=== PATIENT | female | born 1980 | race Caucasian/White ===

== ENCOUNTER 2017-01-29 20:53 | Emergency (ER) | payer OTHER ==
[2017-01-29 21:04] VITALS: BMI 27.4
[2017-01-29 21:06] VITALS: O2SAT 100
--- NOTE | 2017-01-29 21:46 | ED PDOC ---
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 Per pt, pain started 1 month ago and it is intermittent. Pain is described as sharp, rated as a 8/10, and episodic. These episodes usually lasts about 10 minutes and then resolves on its own. Pain is located above the left breast with radiation to the L arm. Pain is not associated with any activity, exercise or motion. Pt states that she gets the pain at random times. Initially when the pain first started, pt would eat something sweet and the pain would go away but now nothing helps with the pain. No similar episodes in the past. Denies palpitations, dyspnea, n/v/d/c, abdominal pain, cough, fever. of note, spouse present by bedside. 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 Past Medical History Reviewed: Historical Data, Nursing Documentation, Vital Signs Vital Signs: Last Vital Signs Temp 98.3 F 01/29/17 21:04 Pulse 61 01/29/17 22:05 Resp 16 01/29/17 21:04 BP 137/79 01/29/17 21:04 Pulse Ox 100 01/29/17 22:13 - Surgical History Surgical History: No Surg Hx - Family History Family History: States: No Known Family Hx - Living Arrangements Living Arrangements: With Family - Social History Current smoker - smoking cessation education provided: No Alcohol: Occasional Drugs: Denies - Home Medications Home Medications: Ambulatory Orders Medication Instructions Recorded Amoxicillin/Clavulanate [Augmentin 1 tab PO BID #14 tab 10/02/15 875 MG-125 MG] - Allergies Allergies/Adverse Reactions: Allergies Allergy/AdvReac Type Severity Reaction Status Date / Time No Known Allergies Allergy Verified 01/29/17 21:04 KATIE Risk Score for UA/NSTEMI - KATIE Risk Score Age > 64: NO 3 or more CAD Risk Factors: NO Known CAD (Stenosis greater than 50%): NO Aspirin use in past 7 days: NO Severe Angina: NO EKG ST changes greater than 0.5mm: NO Positive Cardiac Marker: NO KATIE Score: 0 Risk %: 5% Curb-65 Severity Score - CURB-65 Severity Score Confusion: No Bun >19mg/dl (>7mmol/L): No Respiratory Rate greater than/equal to 30: No Systolic BP <90 or Diastolic BP less than/equal 60mmHg: No Age >64: No Curb-65 Score: 0 Percentage 30-day mortality: 0.6% Wells Criteria for PE - Wells Criteria for Pulmonary Embolism Clinical Signs and Symptoms of DVT: No P.E is #1 Diagnosis, or Equally Likely: No Heart Rate >100: No Immobilization at least 3 days;Surgery previous 4 weeks: No Previous, objectively diagnosed PE or DVT: No Hemoptysis: No Malignancy w/treatment within 6 months, or palliative: No Total Score: 0 Review of Systems ROS Statement: Except As Marked, All Systems Reviewed And Found Negative Constitutional: Negative for: Fever, Chills Cardiovascular: Positive for: Chest Pain (Left sided ). Negative for: Palpitations, Edema Respiratory: Negative for: Cough, Shortness of Breath Gastrointestinal: Negative for: Nausea, Vomiting, Abdominal Pain Genitourinary Female: Negative for: Dysuria, Frequency Musculoskeletal: Positive for: Shoulder Pain (L side ). Negative for: Neck Pain Neurological: Negative for: Weakness, Numbness Psych: Positive for: Anxiety Physical Exam - Reviewed Nursing Documentation Reviewed: Yes Vital Signs Reviewed: Yes - Physical Exam Appears: Positive for: Well, Non-toxic, Uncomfortable (Looks tearful and anxious ) Head Exam: Positive for: ATRAUMATIC, NORMAL INSPECTION, NORMOCEPHALIC Skin: Positive for: Normal Color, Warm, DRY Eye Exam: Positive for: EOMI, Normal appearance, PERRL ENT: Positive for: Normal ENT Inspection Neck: Positive for: Normal, Painless ROM Cardiovascular/Chest: Positive for: Regular Rate, Rhythm, Other (tenderness to palpation L chest above the breast ). Negative for: Murmur Respiratory: Positive for: CNT, Normal Breath Sounds Gastrointestinal/Abdominal: Positive for: Normal Exam, Bowel Sounds, Soft. Negative for: Tenderness, Mass, Distended Back: Positive for: Normal Inspection. Negative for: L CVA Tenderness, R CVA Tenderness Extremity: Positive for: Normal ROM Neurologic/Psych: Positive for: Alert, Oriented - Laboratory Results Result Diagrams: 01/29/17 22:00 01/29/17 22:01 - ECG ECG: Positive for: Interpreted By Me ECG Rhythm: Positive for: Normal QRS, Normal ST Segment Interpretation Of ECG: Normal sinus with rate of [address] changes appreciated. O2 Sat by Pulse Oximetry: 100 - Progress ED Course And Treament: 36 YO Female with no Sig PMH presents to [facility] ED for chest pain. KATIE score is 0, chest pain unlikely to be cardiac in origin. --EKG appreciated, normal sinus with 78 bpm, no st changes appreciated -trops -cbc, cmp wnl -urine dip -chest xray -urine preg neg -Pt signed out to Dr. Ham. Disposition - Clinical Impression Clinical Impression: Chest pain - Disposition Disposition: Transfer of Care (Dr. Ham) Disposition Time: 22:19 Condition: STABLE Forms: [employer] (Maori)
[2017-01-29 22:06] LABS: BASO % 0.3 % (0.0-2.0); EOS # 0.1 K/uL (0.0-0.7); EOS % 1.7 % (0.0-4.0); LYMPH # 2.9 K/uL (1.0-4.3); LYMPH % 37.2 % (20.0-40.0); MEAN CELL VOLUME 91.5 fl (81.0-99.0); MEAN CORPUSCULAR HEMOGLOBIN 30.2 pg (27.0-31.0); MEAN PLATELET VOLUME 9.2 fl (7.2-11.7); MONO # 0.7 K/uL (0.0-0.8); MONO % 8.6 % (0.0-10.0); NEUT % 52.2 % (50.0-75.0); NRBC % 0.1 % (0.0-0.0); RED CELL DISTRIBUTION WIDTH 13.5 % (11.5-14.5); WHITE BLOOD COUNT 7.7 K/uL (4.8-10.8)
[2017-01-29 22:15] LABS: BLOOD UREA NITROGEN 10 mg/dl (7-17); CALCIUM 8.6 mg/dL (8.4-10.2); CARBON DIOXIDE 23 mmol/L (22-30); CHLORIDE 107 mmol/L (98-107); GFR AFRICAN-AMERICAN > 60; GLUCOSE,RANDOM 92 mg/dL (65-105); POTASSIUM 3.7 MMOL/L (3.6-5.0); SODIUM 142 mmol/l (132-148)
[2017-01-29 22:49] VITALS: BP 122/81; PULSE 62; RESP 18; TEMP 98
--- NOTE | 2017-01-29 23:01 | ED PDOC ---
- Laboratory Results Result Diagrams: 01/29/17 22:00 01/29/17 22:01 - ECG O2 Sat by Pulse Oximetry: 100 Medical Decision Making Medical Decision Making: Patient signed out to provider by Dr Wong pending labs Labs reviewed show no clinically significant abnormalities Patient reports improvement in symptoms. she is stable for discharge home Dx Atypical Chest Pain Patient referred to follow up in [facility] and advised to take Ibuprofen as needed Disposition - Clinical Impression Clinical Impression: Chest pain - POA Present On Arrival: None - Disposition Referrals: [facility] [Outside] Disposition: Routine/Home Disposition Time: 22:30 Condition: STABLE Instructions: Noncardiac Chest Pain (ED) Forms: [facility] (Khmer)
--- NOTE | 2017-01-30 06:33 | CARD ---
APPROVED REPORT EKG Measurement Heart [id number] <Conclusion> Normal sinus rhythm Normal ECG
--- NOTE | 2017-01-30 10:41 | RAD ---
HISTORY: chest pain COMPARISON: No prior. FINDINGS: LUNGS: No active pulmonary disease. PLEURA: No significant pleural effusion identified, no pneumothorax apparent. CARDIOVASCULAR: Normal. OSSEOUS STRUCTURES: No significant abnormalities. VISUALIZED UPPER ABDOMEN: Normal. OTHER FINDINGS: None. IMPRESSION: No active disease.
== END 2017-01-29 23:01 | disposition home or self-care (01) ==
LOC: H.ER 20:53
DX: R07.89 Other chest pain (principal)